=== PATIENT | female | born 1975 | race Caucasian/White ===

== ENCOUNTER → 2017-09-28 | Outpatient (CLI) | payer BC ==
[2017-09-28 18:33] LABS: ALT 17 U/L (9-52); AST 15 U/L (14-36); Albumin 4.2 g/dL (3.5-5.0); Alkaline Phosphatase 57 U/L (38-126); Anion Gap 14 mmol/L; Blood Urea Nitrogen 13 mg/dL (7-17); Calcium 9.5 mg/dL (8.4-10.2); Carbon Dioxide 23 mmol/L (22-30); Chloride 106 mmol/L (98-107); Cholesterol 193 mg/dL (<200); Glucose 90 mg/dL (74-99); HDL Cholesterol 73 mg/dL (40-60); LDL Cholesterol,Calculated 103 mg/dL (0-99); Potassium 4.3 mmol/L (3.5-5.1); Sodium 143 mmol/L (137-145); Total Bilirubin 0.4 mg/dL (0.2-1.3); Total Protein 6.8 g/dL (6.3-8.2); Triglycerides 84 mg/dL (<150)
[2017-09-28 18:45] LABS: T4, Free (Free Thyroxine) 1.05 ng/dL (0.78-2.19)
[2017-09-28 18:47] LABS: Basophils % (A) 0 %; Eosinophils # (A) 0.1 k/uL (0-0.7); Eosinophils % (A) 1 %; HCT 41.4 % (34.0-46.0); HGB 13.6 gm/dL (11.4-16.0); Lymphocytes # (A) 1.3 k/uL (1.0-4.8); Lymphocytes % (A) 22 %; MCH 30.8 pg (25.0-35.0); MCHC 32.8 g/dL (31.0-37.0); MCV 94.1 fL (80.0-100.0); Mean Platelet Volume 7.7; Monocytes # (A) 0.4 k/uL (0-1.0); Monocytes % (A) 6 %; Neutrophils % (A) 68 %; Platelet Count 263 k/uL (150-450); RDW 12.5 % (11.5-15.5); WBC 5.8 k/uL (3.8-10.6)
== END | disposition home or self-care (01) ==
LOC: MMGSC 11:04
PROVIDERS: ATTEND Family Medicine
DX: Z00.00 Encounter for general adult medical examination without abnormal findings (principal); R53.83 Other fatigue
CPT/HCPCS: 36415; 80053; 80061; 82306; 84439; 84443; 85025

== ENCOUNTER → 2018-01-10 | Outpatient (CLI) | payer BC ==
--- NOTE | 2018-01-12 10:44 | MM ---
Reason for exam: screening (asymptomatic). Last mammogram was performed 2 years and 4 months ago. History: Family history of breast cancer in maternal grandmother and breast cancer in grandmother. Took hormonal contraceptives for 3 years. Physical Findings: A clinical breast exam by your physician is recommended on an annual basis and results should be correlated with mammographic findings. MG Screening Mammo w CAD Bilateral CC and MLO view(s) were taken. Prior study comparison: September 22, 2015, bilateral MG screening mammo w CAD. February 22, 2014, right breast MG work up mamm w CAD RT. The breast tissue is extremely dense which could obscure a lesion on mammography. No significant changes when compared with prior studies. ASSESSMENT: Benign, BI-RAD 2 RECOMMENDATION: Routine screening mammogram of both breasts in 1 year.
== END | disposition home or self-care (01) ==
LOC: RADMAMWWP 11:56
PROVIDERS: ATTEND Family Medicine
DX: Z12.31 Encounter for screening mammogram for malignant neoplasm of breast (principal)
CPT/HCPCS: 77067

== ENCOUNTER → 2019-01-16 | Outpatient (CLI) | payer BC ==
[2019-01-16 08:44] VITALS: BP 142/88; PULSE 91; RESP 16; TEMP 98.3; BMI 25.6
--- NOTE | 2019-01-16 09:22 | P.HPOB ---
History of Present Illness H&P Date: 01/16/19 Chief Complaint: The patient is here for her routine gynecologic exam and ma mmogram. This is a 44-year-old with an LMP of 01/03/2019. Her 's status post vasectomy. She states her menstrual periods have gotten slightly heavier. There are regular every month lasting 4 days. On the heavy days she has to change her protection every 1 to 2 hours. They have gotten slightly more painful. Review of Systems The patient's weight has been stable over the last year. She denies respiratory, cardiac, or G.I. problems. 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 History of Any Multi-Drug Resistant Organisms: None Reported Past Surgical History: No Surgical Hx Reported Past Psychological History: No Psychological Hx Reported Smoking Status: Current some day smoker (Socially smokes cigarettes, 5 cigarettes per year.) Past Alcohol Use History: Occasional (2 per week) Past Drug Use History: None Reported Additional History: She has been since 1992. 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 - Past Family History Mother Family Medical History: Cancer, Hypertension Additional Family Medical History / Comment(s): Lung cancer. Maternal grandmother had breast cancer. Father Family Medical History: Hypertension Medications and Allergies Home Medications Medication Instructions Recorded Confirmed Type Cholecalciferol [Vitamin D3 (25 1,000 unit PO DAILY 01/16/19 01/16/19 History Mcg = 1000 Iu)] Multivitamin [Multivitamins Adult 1 each PO DAILY 01/16/19 01/16/19 History Gummies] Allergies Allergy/AdvReac Type Severity Reaction Status Date / Time No Known Allergies Allergy Verified 02/22/14 08:37 Exam Vital Signs Temp Pulse Resp BP Pulse Ox 01/16/19 08:38 98.3 F 91 16 142/88 100 Intake and Output 01/15/19 01/16/19 01/16/19 22:59 06:59 14:59 Other: Weight 69.853 kg Height 5'5", weight 154 pounds, BMI 25.6. This is a well-developed well-nourished white female who is alert and oriented times 3 in no acute distress. HEENT: Within normal limits. NECK: Supple without mass or thyromegaly. CHEST AND LUNGS: Clear to auscultation. HEART: Regular rate and rhythm. BREASTS: Are without mass or discharge. AXILLARY EXAM: Negative for adenopathy. BACK: Negative for CVA tenderness. ABDOMEN: Soft, nontender, without palpable masses. PELVIC EXAM: Normal external genitalia. Cervix and vagina appear normal. There is no unusual discharge. There is no evidence of prolapse. The uterus is midposition, multiparous, nongravid size and nontender. There are no palpable adnexal masses or tenderness. RECTAL EXAM: negative for mass or tenderness and is negative for occult blood. EXTREMITIES: Nontender. IMPRESSION: 1. 44-year-old female with normal gynecologic exam whose is status post vasectomy. 2. Mild hypermenorrhea. PLAN: 1. Pap smear was performed. 2. Self breast awareness was discussed with the patient. 3. Screening mammogram will be done today. 4. Trial of meclofenamate sodium 100 mg, 1 PO TID PRN for heavy menstrual flow up to 6 days per cycle. The electronic prescription will be sent to the [facility] pharmacy. If symptoms are worsening or not improving, we can consider endometrial ablation which was discussed with the patient. She was instructed to call if menstrual periods are problem. 5. Osteoporosis prevention was discussed. I have stressed the importance of adequate calcium, vitamin D and regular exercise. Recommended amounts of calcium and vitamin D were also discussed. 6. I recommended that she quit smoking. 7. I have recommended that she check her blood pressure is on a regular basis. She states she does have a blood pressure cuff. She was instructed to follow up with her primary care physician for blood pressure elevations. 8. She was advised to return in one year for her annual well woman exam.
--- NOTE | 2019-01-18 12:06 | MM ---
Reason for exam: screening (asymptomatic). Last mammogram was performed 1 year ago. History: Family history of breast cancer in maternal grandmother and breast cancer in grandmother. Took hormonal contraceptives for 3 years. Physical Findings: A clinical breast exam by your physician is recommended on an annual basis and results should be correlated with mammographic findings. MG 3D Screening Mammo W/Cad Bilateral CC and MLO view(s) were taken. Prior study comparison: January 10, 2018, bilateral MG screening mammo w CAD. September 22, 2015, bilateral MG screening mammo w CAD. The breast tissue is heterogeneously dense. This may lower the sensitivity of mammography. No significant changes when compared with prior studies. ASSESSMENT: Negative, BI-RAD 1 RECOMMENDATION: Routine screening mammogram of both breasts in 1 year.
== END | disposition home or self-care (01) ==
LOC: WWCWWP 08:16
PROVIDERS: ATTEND Obstetrics & Gynecology
DX: Z12.31 Encounter for screening mammogram for malignant neoplasm of breast (principal)
CPT/HCPCS: 77063; 77067

== ENCOUNTER → 2020-02-26 | Outpatient (CLI) | payer BC ==
[2020-02-26 08:10] VITALS: BP 111/78; PULSE 98; RESP 18; TEMP 98.5
--- NOTE | 2020-02-26 08:35 | P.HPOB ---
History of Present Illness H&P Date: 02/26/20 Chief Complaint: The patient is here for her routine gynecologic exam and ma mmogram. This is a 45-year-old with an LMP of 02/20/2020. The patient's is status post postvasectomy the patient has a history of mild hypermenorrhea and was started on meclofenamate sodium last year. She states it has worked "wonderfully" and she uses it 1 or 2 days per month. Her periods are typically lasting 3-4 days and have been regular. She is without complaints. Review of Systems The patient has gained 6 pounds over the last year. She denies respiratory, cardiac, or G.I. problems. 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 History of Any Multi-Drug Resistant Organisms: None Reported Past Surgical History: No Surgical Hx Reported Past Psychological History: No Psychological Hx Reported Smoking Status: Current some day smoker (About 2 cigarettes per month and this is social cigarette use.) Past Alcohol Use History: Occasional (4 or 5 per month) Past Drug Use History: None Reported Additional History: She has been since 1992. 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 - Past Family History Mother Family Medical History: Cancer, Hypertension Additional Family Medical History / Comment(s): Lung cancer. Maternal grandmother had breast cancer. Father Family Medical History: Hypertension Medications and Allergies Home Medications Medication Instructions Recorded Confirmed Type Cholecalciferol [Vitamin D3 (25 1,000 unit PO DAILY 01/16/19 02/26/20 History Mcg = 1000 Iu)] Meclofenamate Sodium 100 mg PO TID PRN #25 capsule 01/16/19 02/26/20 Rx Multivitamin [Multivitamins Adult 1 each PO DAILY 01/16/19 02/26/20 History Gummies] Allergies Allergy/AdvReac Type Severity Reaction Status Date / Time No Known Allergies Allergy Verified 02/26/20 08:03 Exam Vital Signs Temp Pulse Resp BP Pulse Ox 02/26/20 08:07 98.5 F 98 18 111/78 100 Intake and Output 02/25/20 02/26/20 02/26/20 22:59 06:59 14:59 Other: Weight 72.575 kg Height 5 feet 5 inches, weight 160 pounds, BMI 26.6. This is a well-developed well-nourished white female who is alert and oriented times 3 in no acute distress. HEENT: Within normal limits. NECK: Supple without mass or thyromegaly. CHEST AND LUNGS: Clear to auscultation. HEART: Regular rate and rhythm. BREASTS: Are without mass or discharge. AXILLARY EXAM: Negative for adenopathy. BACK: Negative for CVA tenderness. ABDOMEN: Soft, nontender, without palpable masses. PELVIC EXAM: Normal external genitalia. Cervix and vagina appear normal. There is no unusual discharge. There is no evidence of prolapse. The uterus is anterior, multiparous nongravid size and nontender. There are no palpable adnexal masses or tenderness. RECTAL EXAM: negative for mass or tenderness and is negative for occult blood. EXTREMITIES: Nontender. IMPRESSION: 1. 45-year-old premenopausal female whose is status post vasectomy with normal gynecologic exam. 2. History of mild hypermenorrhea improved with meclofenamate sodium. PLAN: 1. Pap smear was deferred since she had a normal one on 01/16/2019. 2. Self breast awareness was discussed with the patient. 3. Screening mammogram will be done today. 4. She will keep a menstrual calendar and call if menstrual problems. She will continue to use meclofenamate sodium when necessary for heavy menstrual flow. The electronic prescription will be sent to [facility] in [place]. 5. She was advised to return in one year for her annual well woman exam.
--- NOTE | 2020-02-27 13:12 | MM ---
Reason for exam: screening (asymptomatic). Last mammogram was performed 1 year and 1 month ago. History: Family history of breast cancer in maternal grandmother. Took hormonal contraceptives for 3 years. Physical Findings: A clinical breast exam by your physician is recommended on an annual basis and results should be correlated with mammographic findings. MG 3D Screening Mammo W/Cad Bilateral CC and MLO view(s) were taken. Prior study comparison: January 16, 2019, bilateral MG 3d screening mammo w/cad. January 10, 2018, bilateral MG screening mammo w CAD. The breast tissue is heterogeneously dense. This may lower the sensitivity of mammography. No significant changes when compared with prior studies. ASSESSMENT: Benign, BI-RAD 2 RECOMMENDATION: Routine screening mammogram of both breasts in 1 year.
== END | disposition home or self-care (01) ==
LOC: WWCWWP 07:52
PROVIDERS: ATTEND Obstetrics & Gynecology
DX: Z12.31 Encounter for screening mammogram for malignant neoplasm of breast (principal)
CPT/HCPCS: 77063; 77067

== ENCOUNTER → 2021-05-19 | Outpatient (CLI) | payer BC ==
[2021-05-19 15:59] VITALS: BP 145/79; PULSE 76; RESP 18; TEMP 98.5
--- NOTE | 2021-05-19 16:57 | P.HPOB ---
History of Present Illness H&P Date: 05/19/21 Chief Complaint: The patient is here for her routine gynecologic exam and ma mmogram. This is a 46-year-old with an LMP of 05/07/2021. The patient's is status post vasectomy. The patient has had a history of hypermenorrhea and has been doing well using meclofenamate sodium for approximately 3 days per month. Menstrual periods continue to be regular every month. She is without complaints. Review of Systems The patient has gained 6 pounds over the last year. She denies respiratory, cardiac, or G.I. problems. 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 History of Any Multi-Drug Resistant Organisms: None Reported Past Surgical History: No Surgical Hx Reported Past Psychological History: No Psychological Hx Reported Smoking Status: Former smoker Past Alcohol Use History: Occasional (3 per month) Additional Past Alcohol Use History / Comment(s): Quit smoking in 2020. Past Drug Use History: None Reported Additional History: She has been since 1992. She now watches her 3 grandchildren and is otherwise not working outside of the home. - Past Family History Mother Family Medical History: Cancer, Hypertension Additional Family Medical History / Comment(s): Lung cancer. Maternal grandmother had breast cancer. Father Family Medical History: Hypertension Medications and Allergies Home Medications Medication Instructions Recorded Confirmed Type Cholecalciferol [Vitamin D3 (25 1,000 unit PO DAILY 01/16/19 05/19/21 History Mcg = 1000 Iu)] Multivitamin [Multivitamins Adult 1 each PO DAILY 01/16/19 05/19/21 History Gummies] Meclofenamate Sodium 100 mg PO TID PRN #25 capsule 02/26/20 05/19/21 Rx Allergies Allergy/AdvReac Type Severity Reaction Status Date / Time No Known Allergies Allergy Verified 05/19/21 15:53 Exam Vital Signs Temp Pulse Resp BP Pulse Ox 05/19/21 15:55 98.5 F 76 18 145/79 100 Intake and Output 05/19/21 05/19/21 05/19/21 06:59 14:59 22:59 Other: Weight 75.296 kg Height 5 feet 5 inches, weight 166 pounds, BMI 27.6. This is a well-developed well-nourished white female who is alert and oriented times 3 in no acute distress. HEENT: Within normal limits. NECK: Supple without mass or thyromegaly. CHEST AND LUNGS: Clear to auscultation. HEART: Regular rate and rhythm. BREASTS: Are without mass or discharge. AXILLARY EXAM: Negative for adenopathy. BACK: Negative for CVA tenderness. ABDOMEN: Soft, nontender, without palpable masses. PELVIC EXAM: Normal external genitalia. Cervix and vagina appear normal. The cervix is slightly friable upon doing the Pap smear. There is no unusual discharge. There is no evidence of prolapse. The uterus is slightly irregular and is approximately 10 weeks' size and is either tilted to the right, or there is a right-sided uterine fibroid. The uterus is nontender. There are no palpable adnexal masses or tenderness. RECTAL EXAM: Rectovaginal exam is negative for mass or tenderness and is negative for occult blood. EXTREMITIES: Nontender. IMPRESSION: 1. 46-year-old female whose is status post vasectomy, with mild hypermenorrhea improved with meclofenamate sodium. 2. Uterine enlargement approximately 10 week size and probable fibroid uterus. Differential diagnosis will also include a uterus which is rotated to the right. 3. Elevated blood pressure. PLAN: 1. Pap smear cotest was performed. 2. Self breast awareness was discussed with the patient. We have also discussed symptoms associated with inflammatory breast cancer. 3. Screening mammogram will be done today. 4. Continue meclofenamate sodium. The electronic prescription will be sent to my her pharmacy in [place]. 5. I have recommended a pelvic ultrasound to further evaluate the slightly enlarged uterus and irregular shape of the uterus. The order slip was given to the patient for this. 6.Osteoporosis prevention was discussed. I have stressed the importance of adequate calcium, vitamin D and regular exercise. Recommended amounts of calcium and vitamin D were also discussed. 7. She is aware of her elevated blood pressure. She states she is also seeing her PCP who is aware of her elevated blood pressure. They are planning to have her do non-medication changes such as dietary changes for weight loss to see if she can control her blood pressure without medicine. 8. She was advised to return in one year for her annual well woman exam and as needed.
--- NOTE | 2021-05-21 10:55 | MM ---
Reason for exam: screening (asymptomatic). Last mammogram was performed 1 year and 3 months ago. History: Family history of breast cancer in maternal grandmother. Took hormonal contraceptives for 3 years. Physical Findings: A clinical breast exam by your physician is recommended on an annual basis and results should be correlated with mammographic findings. MG 3D Screening Mammo W/Cad Bilateral CC and MLO view(s) were taken. Prior study comparison: February 26, 2020, bilateral MG 3d screening mammo w/cad. January 16, 2019, bilateral MG 3d screening mammo w/cad. The breast tissue is extremely dense which could obscure a lesion on mammography. Finding: There are grouped/clustered, fine calcifications in the outer quadrant, middle position of the left breast. New finding since February 26, 2020 and January 16, 2019. ASSESSMENT: Incomplete: need additional imaging evaluation, BI-RAD 0 RECOMMENDATION: Special view mammogram of the left breast. [facility] will attempt to contact patient to return for supplemental views.
== END ==
LOC: WWCWWP 15:39
PROVIDERS: ATTEND Obstetrics & Gynecology
DX: Z12.39 Encounter for other screening for malignant neoplasm of breast (principal); N85.2 Hypertrophy of uterus; R03.0 Elevated blood-pressure reading, without diagnosis of hypertension; Z87.891 Personal history of nicotine dependence
CPT/HCPCS: 77063; 77067

== ENCOUNTER → 2021-06-02 | Outpatient (CLI) | payer BC ==
--- NOTE | 2021-06-02 14:38 | MM ---
Reason for exam: additional evaluation requested from abnormal screening. Last mammogram was performed less than 1 month ago. History: Family history of breast cancer in maternal grandmother. Took hormonal contraceptives for 3 years. Physical Findings: Nurse did not find any significant physical abnormalities on exam. MG 3D Work Up W/Cad LT CC with magnification and LM view(s) were taken of the left breast. Prior study comparison: May 19, 2021, bilateral MG 3d screening mammo w/cad. February 26, 2020, bilateral MG 3d screening mammo w/cad. The breast tissue is heterogeneously dense. This may lower the sensitivity of mammography. Lateral calcifications become less conspicious on magnification views. A few punctate calcifications may be present but these are typically benign. These results were verbally communicated with the patient and result sheet given to the patient on 06/02/21. ASSESSMENT: Probably benign, BI-RAD 3 RECOMMENDATION: Follow-up diagnostic mammogram of the left breast in 6 months.
== END | disposition home or self-care (01) ==
LOC: RADMAMWWP 13:32
PROVIDERS: ATTEND Obstetrics & Gynecology
DX: R92.1 Mammographic calcification found on diagnostic imaging of breast (principal); Z80.3 Family history of malignant neoplasm of breast
CPT/HCPCS: 77061; 77065

== ENCOUNTER → 2021-06-10 | Outpatient (CLI) | payer BC ==
--- NOTE | 2021-06-10 11:34 | US ---
EXAMINATION TYPE: US pelvic complete DATE OF EXAM: 06/10/2021 COMPARISON: NONE CLINICAL HISTORY: 46-year-old female N85.2 uterine enlargement. TECHNIQUE: Transabdominal sonographic images of the pelvis were acquired. FINDINGS: EXAM MEASUREMENTS: Uterus: 14.0x8.5x7.7 cm Endometrial Stripe: 1.4 cm Right Ovary: 2.6x1.7x1.8 cm Left Ovary: 1.9x1.8x2.7 cm 1. Uterus: Anteverted. Posterior uterine body fibroid 5.4x8.1x5.7cm within the myometrium 2. Endometrium: wnl 3. Right Ovary: wnl 4. Left Ovary: Dominant follicle 1.1x1.3x1.2 5. Bilateral adnexa: wnl 6. Posterior cul-de-sac: wnl IMPRESSION: 1. Endometrial stripe thickness of 1.4 cm should correspond to the secretory phase of the menstrual c ycle. 2. An 8.1 cm focal fibroid along the posterior uterine body appears primarily intramural. 3. A small 1.3 cm dominant follicle of the left ovary.
--- NOTE | 2021-06-10 12:46 | P.PN ---
Progress Note - Text Progress Note Date: 06/10/21 OUTPATIENT FOLLOW-UP NOTE TEST(S)/RESULTS: Pelvic ultrasound done on 06/10/2021 shows a posterior uterine fibroid measuring 5.4 x 8.1 x 5.7 cm and this is in the myometrium. METHOD OF NOTIFICATION: Patient was notified by phone. PATIENT COMMENTS: DIAGNOSIS: Uterine fibroid measuring approximately 8.1 x 5.7 cm. DISCUSSION: We had a long discussion regarding uterine fibroids including the benign nature of fibroids. We have discussed options including conservative ma nagement and surgical removal. At this time since her menstrual periods seem to be controlled with meclofenamate sodium and she is otherwise not having any significant problems with this fibroid, we will follow this conservatively. She was instructed to call if she is having worsening symptoms or problems. PLAN: As above. She was advised to return in one year for her annual well woman exam and as needed. The ACOG FAQ handout on uterine fibroids will be mailed to the patient.
== END | disposition home or self-care (01) ==
LOC: RADUSWWP 07:12
PROVIDERS: ATTEND Obstetrics & Gynecology
DX: D25.9 Leiomyoma of uterus, unspecified (principal)
CPT/HCPCS: 76856

== ENCOUNTER → 2021-12-08 | Outpatient (CLI) | payer BC ==
--- NOTE | 2021-12-08 11:31 | MM ---
Reason for Exam: Follow-up at short interval from prior study. Last screening mammogram was performed 7 month(s) ago. Patient History: Menarche at age 11. First Full-Term at age 18. Patient used Hormonal Contraceptives for 3 years. Maternal grandmother had breast cancer. Risk Values: [place] 5 year model risk: 0.8%. NCI Lifetime model risk: 8.3%. Prior Study Comparison: 02/26/2020 Bilateral Screening Mammogram, [facility]. 05/19/2021 Bilateral Screening Mammogram, [facility]. 06/02/2021 Left Diagnostic Mammogram, [facility]. Tissue Density: Left: The breast tissue is heterogeneously dense. This may lower the sensitivity of mammography. Findings: Analyzed By CAD. No significant changes when compared with prior studies. There are benign calcifications in the left breast. Overall Assessment: Benign, BI-RAD 2 Management: Return to routine follow-up (next follow-up: 05/19/2022 for Screening Mammogram) Electronically signed and approved by: Liban Silva M.D. Radiologis
== END | disposition home or self-care (01) ==
LOC: RADMAMWWP 07:25
PROVIDERS: ATTEND Obstetrics & Gynecology
DX: Z78.0 Asymptomatic menopausal state (principal); Z80.3 Family history of malignant neoplasm of breast; R92.8 Other abnormal and inconclusive findings on diagnostic imaging of breast
CPT/HCPCS: 77061; 77065

== ENCOUNTER → 2022-06-15 | Outpatient (CLI) | payer BC ==
[2022-06-15 12:24] VITALS: BP 142/86; PULSE 87; RESP 17; TEMP 97.8
--- NOTE | 2022-06-15 13:05 | P.HPOB ---
History of Present Illness H&P Date: 06/15/22 Chief Complaint: The patient is here for her routine gynecologic exam and ma mmogram. This is a 47-year-old with an LMP of 05/29/2022. The patient states she has noticed a slight change in her menstrual periods where every other month the menstrual period seems to be a few days late. The second day of each menstrual periods seems to be heavier, but this seems less heavy than last year. She has been experiencing hot flashes during the past year, but they are tolerable. She has noticed less pelvic pressure with her uterine fibroid, but has noticed she seems to get emotional easier. Review of Systems The patient has gained 14 pounds over the last year. She recently was started on Adipex by her PCP for weight control. She denies respiratory, cardiac, or G.I. problems. Past Medical History Past Medical History: No Reported History Additional Past Medical History / Comment(s): PAST [employer] HISTORY: She has no history of STDs. History of Any Multi-Drug Resistant Organisms: None Reported Past Surgical History: No Surgical Hx Reported Past Psychological History: No Psychological Hx Reported Smoking Status: Former smoker Past Alcohol Use History: Occasional (2 per month) Additional Past Alcohol Use History / Comment(s): Quit smoking in 2020. Past Drug Use History: None Reported Additional History: She is been since 1992. She does not work outside of the home. She does watch her 3 grandchildren on certain days of the week. - Past Family History Mother Family Medical History: Cancer, Hypertension Additional Family Medical History / Comment(s): Lung cancer. Maternal grandmother had breast cancer. Father Family Medical History: Hypertension Medications and Allergies Home Medications Medication Instructions Recorded Confirmed Type Cholecalciferol [Vitamin D3 (25 1,000 unit PO DAILY 01/16/19 06/15/22 History Mcg = 1000 Iu)] Multivitamin [Multivitamins Adult 1 each PO DAILY 01/16/19 06/15/22 History Gummies] Phentermine HCl [Adipex P] 15 mg PO DAILY 06/15/22 06/15/22 History Allergies Allergy/AdvReac Type Severity Reaction Status Date / Time No Known Allergies Allergy Verified 06/15/22 12:19 Exam Vital Signs Temp Pulse Resp BP Pulse Ox 06/15/22 12:22 97.8 F 87 17 142/86 98 Intake and Output 06/14/22 06/15/22 06/15/22 22:59 06:59 14:59 Other: Weight 81.647 kg Height 5 feet 5 inches, weight 180 pounds, BMI 30.0. This is a well-developed well-nourished white female who is alert and oriented times 3 in no acute distress. HEENT: Within normal limits. NECK: Supple without mass or thyromegaly. CHEST AND LUNGS: Clear to auscultation. HEART: Regular rate and rhythm. BREASTS: Are without mass or discharge. AXILLARY EXAM: Negative for adenopathy. BACK: Negative for CVA tenderness. ABDOMEN: Soft, nontender, without palpable masses. PELVIC EXAM: Normal external genitalia with small vulvar inclusion cysts measuring up proximally 0.5 cm, one on each side. They are noninflamed and nontender. Cervix and vagina appear normal. There is no unusual discharge. There is no evidence of prolapse. The uterus is midposition, approximately 10 weeks' size, firm and slightly irregular consistent with a fibroid uterus. The uterus is nontender. There are no palpable adnexal masses or tenderness. RECTAL EXAM: Rectovaginal exam is negative for mass or tenderness and is negative for occult blood. EXTREMITIES: Nontender. IMPRESSION: 1. 47-year-old perimenopausal female with stable 10 week size fibroid uterus, with otherwise unremarkable gynecologic exam. 2. Slight menstrual irregularity and vasomotor symptoms consistent with the perimenopausal state. 3. Mildly elevated blood pressures. PLAN: 1. Pap smear was deferred since she had a negative Pap smear, test on 05/19/2021. 2. Self breast awareness was discussed with the patient. We have also discussed symptoms associated with inflammatory breast cancer. 3. Screening mammogram will be done today. 4. Osteoporosis prevention was discussed. I have stressed the importance of adequate calcium, vitamin D and regular exercise. Recommended amounts of calcium and vitamin D were also discussed. 5. We have discussed her elevated blood pressure. I have recommended that she check her own blood pressures at home on a regular basis. She is to follow-up with her PCP for blood pressure elevations. 6. She states she has discussed a screening colonoscopy with her PCP and this will be arranged through her PCP. 7. She has not had a cold at that examination, but has had Covid. She understands vaccination for this is available and she will consider this. 8. She was advised to return in one year for her annual well woman exam.
--- NOTE | 2022-06-16 11:22 | MM ---
Reason for Exam: Screening (asymptomatic). Last mammogram was performed 1 year(s) and 1 month(s) ago. Patient History: Menarche at age 11. First Full-Term at age 18. Perimenopausal. Patient used Hormonal Contraceptives for 3 years. Maternal grandmother had breast cancer, age 70. Risk Values: Aislinn 5 year model risk: 0.8%. NCI Lifetime model risk: 8.2%. Prior Study Comparison: 05/19/2021 Bilateral Screening Mammogram, [facility]. 06/02/2021 Left Diagnostic Mammogram, [facility]. 12/08/2021 Left MG 3D diag mammo w/cad LT, [facility]. Tissue Density: The breast tissue is extremely dense which could obscure a lesion on mammography. Findings: Analyzed By CAD. Pattern appears symmetrical and stable. No significant interval change is evident No suspicious groups of microcalcifications, spiculated or lobular masses, architectural distortion or other secondary signs of malignancy are mammographically apparent. Overall Assessment: Benign, BI-RAD 2 Management: Screening Mammogram of both breasts in 1 year. A negative mammogram report should not preclude additional follow up of suspicious palpable abnormalities. Patient should continue monthly self breast exam. A clinical breast exam by your physician is recommended on an annual basis and results should be correlated with mammographic findings. Electronically signed and approved by: Fermin Morris D.O. Radiologis
== END ==
LOC: WWCWWP 12:13
PROVIDERS: ATTEND Obstetrics & Gynecology
DX: Z01.419 Encounter for gynecological examination (general) (routine) without abnormal findings (principal); Z12.31 Encounter for screening mammogram for malignant neoplasm of breast; D25.9 Leiomyoma of uterus, unspecified; R03.0 Elevated blood-pressure reading, without diagnosis of hypertension; F17.210 Nicotine dependence, cigarettes, uncomplicated
CPT/HCPCS: 77063; 77067

== ENCOUNTER → 2023-01-14 | Outpatient (CLI) | payer BC ==
[2023-01-14 15:07] LABS: Basophils # (A) 0.06 X 10*3/uL (0.00-0.10); Basophils % (A) 0.8 %; Eosinophils # (A) 0.07 X 10*3/uL (0.04-0.35); HCT 37.8 % (37.2-46.3); HGB 12.1 d/dL (12.0-15.0); Lymphocytes # (A) 1.77 X 10*3/uL (0.90-5.00); Lymphocytes % (A) 24.3 %; MCV 93.6 FL (80.0-97.0); Mean Platelet Volume 10.8 FL (9.5-12.2); Monocytes # (A) 0.62 X 10*3/uL (0.20-1.00); Monocytes % (A) 8.5 %; NRBC Per 100 WBC 0 X 10*3/uL (0.00-0.01); Neutrophils # (A) 4.74 X 10*3/uL (1.80-7.70); Platelet Count 265 X 10*3/uL (140-440); RBC 4.04 X 10*6/uL (4.10-5.20); RDW 12.7 % (11.5-14.5); WBC 7.29 X 10*3/uL (4.50-10.00)
[2023-01-14 15:29] LABS: Carbon Dioxide 24.3 mmol/L (21.6-31.8); Chloride 103 mmol/L (96-109); Glucose 76 mg/dL (70-110); Potassium 4.1 mmol/L (3.5-5.5); Sodium 139 mmol/L (135-145)
== END | disposition home or self-care (01) ==
LOC: LABPAT 10:26
PROVIDERS: ATTEND Obstetrics & Gynecology Obstetrics
DX: Z01.812 Encounter for preprocedural laboratory examination (principal); N92.0 Excessive and frequent menstruation with regular cycle; D25.9 Leiomyoma of uterus, unspecified
CPT/HCPCS: 80051; 82565; 82947; 84520; 85025; 87086

== ENCOUNTER 2023-01-24 05:38 | Day surgery (SDC) | payer BC ==
[2023-01-14 12:17] VITALS: BMI 31.6
[~2023-01-24 05:38] MED LIST: DEXAMETHASONE SOD PHOSPHATE 4 MG/ML 1 ML VIAL IV ONE; LACTATED RINGERS 1,000 ML IV SCH; MIDAZOLAM 2 MG/2 ML VIAL IV PRN; ONDANSETRON 4 MG/2 ML VIAL IVP ONE; SCOPOLAMINE 1 MG/72 HR PATCH TRANSDERM ONE
[2023-01-24] MEDS ORDERED: LACTATED RINGERS 1,000 ML IV ONE ×2 (06:41→09:39)
[2023-01-24] MEDS ORDERED: HYDROmorphone 0.5 MG/0.5 ML SYRINGE IVP PRN (07:00)
[2023-01-24] MEDS ORDERED: fentaNYL (PF) 50 MCG/1 ML VIAL IVP ONE (07:11)
[2023-01-24] MEDS ORDERED: LIDOCAINE 2% INJ 20 MG/ML (2 ML VIAL) ONE (07:34)
[2023-01-24] MEDS ORDERED: MIDAZOLAM 2 MG/2 ML VIAL ONE (07:34)
[2023-01-24] MEDS ORDERED: PROPOFOL 10 MG/ML 20 ML VIAL IV ONE (07:34)
[2023-01-24] MEDS ORDERED: SODIUM CHLORIDE 0.9% (PF) 10 ML VIAL ONE (07:34)
[2023-01-24] MEDS ORDERED: PHENYLEPHRINE-0.9% NACL SYG 1,000 MCG/10 ML SYRINGE ONE (07:34)
[2023-01-24] MEDS ORDERED: NEOSTIGMINE 1 MG/ML 10 ML VIAL ONE (07:34)
[2023-01-24] MEDS ORDERED: GLYCOPYRROLATE 0.2 MG/ML 2 ML VIAL ONE (07:34)
[2023-01-24] MEDS ORDERED: ROPIVACAINE 5 MG/ML 30 ML VIAL ONE (07:34)
[2023-01-24] MEDS ORDERED: ROCURONIUM 10 MG/ML (5 ML VIAL) IV ONE (07:34)
[2023-01-24] MEDS ORDERED: SUCCINYLCHOLINE CHLORIDE 200 MG/10 ML VIAL IV ONE (07:34)
[2023-01-24] MEDS ORDERED: fentaNYL (PF) 50 MCG/ML 2 ML AMP ONE (07:34)
[2023-01-24] MEDS ORDERED: HYDROmorphone (PF) 1 MG/ML ONE (07:34)
[2023-01-24] MEDS ORDERED: BUPIVACAINE (PF) 0.25% 30 ML VIAL SQ ONE (08:24)
--- NOTE | 2023-01-24 08:49 | P.ANPRN ---
Procedure Note - Anesthesia - Nerve Block Performed Bilateral Erector Spinae Time Out Performed: Yes (07:00) Date of Procedure: 01/24/23 Procedure Start Time: :00 Procedure Stop Time: :08 Location of Patient: PreOp Indication: Acute Post-Operative Pain, Requested by Surgeon (DR Segundo) Sedation Type: Sedate with meaningful contact maintained Preparation: Sterile Prep Position: Prone Catheter: None Needle Types: Pajunk Needle Gauge: 21 Ultrasound used to visualize needle placement: Yes Ultrasound used to observe medication spread: Yes Injectate: 0.5% Ropivacaine (see comment for volume) (15cc +10cc PF Normal saline each side) Blood Aspirated: No Pain Paresthesia on Injection Noted: No Resistance on Injection: Normal Image Stored and Saved: Yes Events: Uneventful and Well Tolerated
[2023-01-24] MEDS ORDERED: ACETAMINOPHEN IV (For NPO) 1,000 MG in EMPTY BAG 1 BAG IVPB ONE (09:48)
[2023-01-24] MEDS ORDERED: SIMETHICONE 80 MG CHEWABLE PO PRN (09:48)
[2023-01-24] MEDS ORDERED: Acetaminophen-Codeine 300-30mg TAB PO PRN ×2 (09:48)
[2023-01-24] MEDS ORDERED: IBUPROFEN 600 MG TAB PO PRN (09:48)
--- NOTE | 2023-01-24 09:56 | P.OP ---
Date of Procedure: 01/24/23 Preoperative Diagnosis: Menorrhagia, uterine fibroids, enlarged uterus Postoperative Diagnosis: Same plus endometriosis Procedure(s) Performed: Robotic-assisted vaginal hysterectomy, bilateral salpingectomy, diagnostic cystoscopy Anesthesia: MEGHANA Surgeon: Batsheva Segundo Primer Waterproofing Machine Adjuster #1: Sloane Peterson Estimated Blood Loss (ml): 50 IV fluids (ml): 700 Urine output (ml): 100 Pathology: other (Uterus cervix bilateral fallopian tubes) Condition: stable Disposition: PACU Indications for Procedure: 48-year-old presents with complaints of heavy menstrual bleeding, and ultrasound evaluation uterus is noted to be enlarged at 11 cm, to posterior 5 cm fibroids are visualized. Operative Findings: Enlarged globular uterus endometrial implants noted posterior to the uterus Description of Procedure: Patient was taken back to the operative suite where general anesthesia was obtained without difficulty by the anesthesia department. She was prepped and draped in the normal sterile fashion in the dorsal lithotomy position a Ruiz catheter was then placed under sterile technique. A weighted speculum was placed in the posterior vaginal vault the anterior lip of the cervix is visualized and grasped with a single-tooth tenaculum. Endocervical canal was then serially dilated. A expresscoin uterine manipulator was then placed. The balloon was insufflated with air and all inserts removed from the patient's vaginal vault. Attention then turned the patient's abdomen where approximately 2 finger breaths above the umbilicus a small skin incision is made. Through this incision appears needles placed. Once the Veress needle was deemed to be in the proper position with a drop of CO2 pressure with insufflation of CO2 gas CO2 insufflation was allowed to occur. Approximately 3 L of gas were used to obtain pneumoperitoneum at this time the trocar and sleeve with the laparoscope in place placed through the skin incision and toward the pneumoperitoneum. The above-noted findings are visualized. The additional port sites are now placed at 10 cm lateral and 3 simple meters inferior to midline port these are 8 mm ports placed under direct visualization. In the left upper quadrant a 12 mm trocar and sleeve is placed under direct visualization. At this time the da Joanna robot was docked in usual fashion, the operative arms are now placed. In the right operative arm the monopolar scissors and the left operative arm the bipolar forceps is placed. Attention was then turned to the patient's left fallopian tube which was elevated and mesosalpinx was coagulated and transected. This continued toward the uterine ovarian which was coagulated distally and proximally and divided. This continued toward the broad through the round which was coagulated transected and hemostatic. The bladder flap from the left was then created using sharp and blunt dissection. The right fallopian tube was then elevated mesosalpinx coagulated and transected. The uterine ovarian ligament was visualized coagulated and transected with good hemostasis appreciated. This continued through the broad and toward the round which was coagulated and transected. Hemostasis was noted. The bladder flap from the right was then created using sharp and blunt dissection. The ascending branch of the uterine artery from the right was then visualized coagulated and tr ansected. This was then repeated on the opposite side. At this point the only remaining attachment was a vaginal attachment therefore colpotomy incision was made in a circumferential fashion. The uterus was delivered into the vaginal vault. A weighted speculum was placed in the posterior vaginal vault and the uterus was morcellated for removal. After removal of the pelvis was then copiously irrigated and the vaginal cuff was closed with 0 Vicryl suture. Approximately 5 [id number] sutures were used to obtain closure. The pelvis was then irrigated once again and hemostasis was appreciated. At this time the da Joanna was undocked in the usual fashion trochars were removed and a cystoscopy was performed. Attention was then turned the patient's Ruiz catheter was removed without difficulty and clear yellow urine was noted in the Ruiz tubing. The cystoscope was placed through the urethra and toward the bladder, bladder bubble was appreciated, a complete complete circumferential evaluation of the bladder revealed intact mucosa. Both ureteral orifices were noted to be spilling clear yellow urine. The cystoscope was removed. The Ruiz catheter was replaced. Attention was then turned the patient's abdomen where the skin incisions were closed with 4-0 Vicryl in a subcu fashion. Steri-Strips and sterile dressings were applied. All counts were noted be correct 2 at the end of the procedure. Patient tolerated procedure well and was taken the recovery room awake in stable condition.
[2023-01-25] MEDS: SENNOSIDES-DOCUSATE SODIUM 1 EACH TAB PO SCH ×2 (00:59→08:55)
[2023-01-25 07:51] LABS: Basophils % (A) 0 %; Eosinophils % (A) 0 %; HCT 37.8 % (34.0-46.0); HGB 12.4 gm/dL (11.4-16.0); Lymphocytes # (A) 1.4 k/uL (1.0-4.8); Lymphocytes % (A) 16 %; MCH 30.1 pg (25.0-35.0); MCHC 32.7 g/dL (31.0-37.0); Monocytes # (A) 0.5 k/uL (0-1.0); Monocytes % (A) 6 %; Neutrophils # (A) 6.9 k/uL (1.3-7.7); Neutrophils % (A) 76 %; Platelet Count 233 k/uL (150-450); RBC 4.11 m/uL (3.80-5.40); RDW 13.2 % (11.5-15.5)
--- NOTE | 2023-01-25 08:43 | P.DS ---
Providers Date of admission: 01/24/2023 Expected date of discharge: 01/25/23 Attending physician: Batsheva Segundo Primary care physician: Rebecca Aguirre - Discharge Diagnosis(es) (1) Uterine fibroid Current Visit: Yes Status: Acute (2) Enlarged uterus Current Visit: Yes Status: Acute (3) S/P laparoscopic hysterectomy Current Visit: Yes Status: Acute Hospital Course: This is a 48-year-old patient presented yesterday for scheduled robotic-assisted vaginal hysterectomy with bilateral salpingectomy, diagnostic cystoscopy. Patient had known history of uterine fibroids with enlarged uterus. Patient was admitted and hysterotomy was performed without difficulty. For full details on the history please see the dictated operative report. Patient's postoperative course has been uneventful. On this postoperative day #1 she is ambulating and voiding without difficulty. She is tolerating a regular diet without nausea or vomiting. She states her pain is well- controlled. She denies concerns and wishes discharge home. Patient Condition at Discharge: Good Plan - Discharge Summary Discharge Rx Participant: Yes New Discharge Prescriptions: No Action Multivitamin [Multivitamins Adult Gummies] 1 each PO DAILY Ibuprofen [Motrin Ib] 200 mg PO Q8H Discharge Medication List Multivitamin [Multivitamins Adult Gummies] 1 each PO DAILY 01/16/19 [History] Ibuprofen [Motrin Ib] 200 mg PO Q8H 01/14/23 [History] Follow up Appointment(s)/Referral(s): Batsheva Segundo DO [Doctor of Osteopathic Medicine] - 2 Weeks Patient Instructions/Handouts: Laparoscopic Hysterectomy (DC), Laparoscopic Hysterectomy (GEN) Activity/Diet/Wound Care/Special Instructions: No tub baths or intercourse until released by myself. Patient is to call the office to make a routine postoperative appointment in 2 weeks. Should she have any concerns prior to this appointment she is urged to call the office. Utld-oli-huvybli ibuprofen 600 mg every 6 hours as needed for pain. Patient can expect some mild vaginal bleeding post hysterectomy. Once again should she have any concerns or questions regarding bleeding concerns she is urged office for advice. Discharge Disposition: HOME SELF-CARE
[2023-01-25 08:46] VITALS: BP 132/83; PULSE 89; RESP 16; TEMP 98.3
[2023-01-25] MEDS ORDERED: ACETAMINOPHEN TAB 325 MG TAB PO PRN (09:49)
== END 2023-01-25 09:35 | disposition home or self-care (01) ==
LOC: OR 05:38 → 4FBP 09:37 → OR 01-25 09:35
PROVIDERS: ATTEND Obstetrics & Gynecology Obstetrics
DX: D25.1 Intramural leiomyoma of uterus (principal); N92.0 Excessive and frequent menstruation with regular cycle; N72 Inflammatory disease of cervix uteri
CPT/HCPCS: 58552; 81025; 64999; 86900; 86901; 85025; 86850; 88307; 52281; J2250; J1100; J0690; J2405; J0131; J3010; J0665

== ENCOUNTER → 2023-09-16 | Outpatient (CLI) | payer BC ==
--- NOTE | 2023-09-20 13:56 | MM ---
Reason for Exam: Screening (asymptomatic). Last mammogram was performed 1 year(s) and 3 month(s) ago. Patient History: Menarche at age 11. First Full-Term at age 18. Hysterectomy at age 48. Postmenopausal. Patient used Hormonal Contraceptives for 3 years. Maternal grandmother had breast cancer, age 70. Risk Values: Aislinn 5 year model risk: 0.9%. NCI Lifetime model risk: 8.0%. Prior Study Comparison: 06/02/2021 Left Diagnostic Mammogram, [facility]. 12/08/2021 Left MG 3D diag mammo w/cad LT, [facility]. 06/15/2022 Bilateral MG 3D screening mammo w/cad, [facility]. Tissue Density: The breasts are heterogeneously dense, which may obscure small masses. Findings: Analyzed By CAD. The pattern is symmetrical. Pattern appears stable from comparison No suspicious groups of microcalcifications, spiculated or lobular masses, architectural distortion or other secondary signs of malignancy are mammographically apparent. Overall Assessment: Benign, BI-RAD 2 Management: Screening Mammogram of both breasts in 1 year. A negative mammogram report should not preclude additional follow up of suspicious palpable abnormalities. Patient should continue monthly self breast exam. A clinical breast exam by your physician is recommended on an annual basis and results should be correlated with mammographic findings. Electronically signed and approved by: Fermin Morris D.O. Radiologis
== END | disposition home or self-care (01) ==
LOC: RADMAMWWP 08:47
PROVIDERS: ATTEND Obstetrics & Gynecology
DX: Z12.31 Encounter for screening mammogram for malignant neoplasm of breast (principal); Z78.0 Asymptomatic menopausal state; Z80.3 Family history of malignant neoplasm of breast
CPT/HCPCS: 77063; 77067

== ENCOUNTER → 2024-09-28 | Outpatient (CLI) | payer BC ==
--- NOTE | 2024-09-28 17:21 | MM ---
Reason for Exam: Screening (asymptomatic). Last mammogram was performed 1 year(s) and 1 month(s) ago. Patient History: Menarche at age 11. First Full-Term at age 18. Hysterectomy at age 48. Postmenopausal. Currently using Progesterone, starting at age 48. Patient used Hormonal Contraceptives for 3 years. Maternal grandmother had breast cancer, age 70. Risk Values: Aislinn 5 year model risk: 0.9%. NCI Lifetime model risk: 7.9%. Prior Study Comparison: 01/10/2018 Bilateral Screening Mammogram, [facility]. 01/16/2019 Bilateral Screening Mammogram, [facility]. 02/26/2020 Bilateral Screening Mammogram, [facility]. 05/19/2021 Bilateral Screening Mammogram, [facility]. 06/02/2021 Left Diagnostic Mammogram, [facility]. 12/08/2021 Left MG 3D diag mammo w/cad LT, [facility]. 06/15/2022 Bilateral MG 3D screening mammo w/cad, [facility]. 09/16/2023 Bilateral MG 3D screening mammo w/cad, [facility]. Tissue Density: The breasts are heterogeneously dense, which may obscure small masses. Findings: Analyzed By CAD. Areas of asymmetric density are unchanged. There is no suspicious group of microcalcifications or new suspicious mass in either breast. Overall Assessment: Benign, BI-RAD 2 Management: Screening Mammogram of both breasts in 1 year. Patient should continue monthly self-breast exams. A clinical breast exam by your physician is recommended on an annual basis. This exam should not preclude additional follow-up of suspicious palpable abnormalities. Note on Aislinn scores and lifetime risk: 1. A Aislinn score greater than 3% is considered moderate risk. If this is the case, consider specialist referral to assess eligibility for a risk reducing agent. 2. If overall lifetime risk for the development of breast cancer is 20% or higher, the patient may qualify for future screening with alternating mammogram and breast MRI. [facility], , 09/28/2024 5:18 PM. Electronically signed and approved by: Cristóbal Doyle M.D. Radiologist
== END | disposition home or self-care (01) ==
LOC: RADMAMWWP 12:30
PROVIDERS: ATTEND Obstetrics & Gynecology
DX: Z12.31 Encounter for screening mammogram for malignant neoplasm of breast (principal); R92.333 Mammographic heterogeneous density, bilateral breasts; Z78.0 Asymptomatic menopausal state; Z80.3 Family history of malignant neoplasm of breast; Z92.0 Personal history of contraception
CPT/HCPCS: 77063; 77067

== ENCOUNTER 2024-12-14 13:06 | Day surgery (SDC) | payer BC ==
[2024-12-14] MEDS: IV FLUID CONTINUATION 1,000 ML IV ONE ×2 (14:10→15:14)
[2024-12-14 14:17] VITALS: TEMP 97
[2024-12-14] MEDS: LACTATED RINGERS 1,000 ML IV SCH (14:26)
[2024-12-14] MEDS ORDERED: PROPOFOL 10 MG/ML 20 ML VIAL IV ONE (15:15)
--- NOTE | 2024-12-14 15:36 | P.PCN ---
Date of Procedure: 12/14/24 Procedure(s) Performed: BRIEF HISTORY: Patient is a 49-year-old pleasant white female scheduled for an elective colonoscopy as a part of screening for colon cancer. PROCEDURE PERFORMED: Colonoscopy with snare polypectomy. PREOPERATIVE DIAGNOSIS: Screening for colon cancer. IV sedation per Anesthesia. PROCEDURE: After informed consent was obtained, the patient, was brought into the endoscopy unit. IV sedation was administered by Anesthesia under continuous monitoring. Digital rectal examination was normal. Initially the Olympus CF-160 flexible video colonoscope was then inserted in the rectum, gradually advanced into the cecum without any difficulty. Careful examination was performed as the scope was gradually being withdrawn. Ileocecal valve and the appendiceal orifice were visualized and appeared normal. Prep was excellent. Mucosa of the cecum, had a 6 mm flat polyp that was removed by cold snare polypectomy. Rest of the ascending colon, transverse colon, descending colon, sigmoid colon, and rectum appeared normal. Scattered sigmoid diverticulosis. Retroflexion was performed in the rectum and no lesions were seen. The patient tolerated the procedure well. IMPRESSION: 6 mm flat cecal polyp with cold snare polypectomy Scattered sigmoid diverticulosis RECOMMENDATIONS: Findings of this examination were discussed with the patient as well as her family. She was advised to follow-up with the biopsy results. If the biopsy reveals adenoma she can have repeat colonoscopy in 5 years
[2024-12-14 15:53] VITALS: RESP 16
[2024-12-14 16:01] VITALS: BP 117/75; PULSE 88
== END 2024-12-14 16:15 | disposition home or self-care (01) ==
LOC: ORWHC2ENDO 13:06
PROVIDERS: ATTEND Internal Medicine Gastroenterology
DX: Z12.11 Encounter for screening for malignant neoplasm of colon (principal); D12.0 Benign neoplasm of cecum; K57.30 Diverticulosis of large intestine without perforation or abscess without bleeding; Z79.890 Hormone replacement therapy; Z87.891 Personal history of nicotine dependence
CPT/HCPCS: 88305; 45385; J2704